=== PATIENT | male | born 1975 | race Caucasian/White ===

== ENCOUNTER 2021-11-05 15:27 | Emergency (ER) | payer OTHER | END 2021-11-05 16:00 | disposition home or self-care (01) | LOC: ER 15:28 | DX: S00.431A Contusion of right ear, initial encounter (principal); F17.200 Nicotine dependence, unspecified, uncomplicated; W22.8XXA Striking against or struck by other objects, initial encounter; Y93.89 Activity, other specified; Y92.89 Other specified places as the place of occurrence of the external cause; Y99.8 Other external cause status | CPT/HCPCS: 99283 ==